=== PATIENT | male | born 1990 | race Caucasian/White ===

== ENCOUNTER 2019-04-27 13:30 | Emergency (ER) | payer OTHER, BC ==
[2019-04-27] MEDS ORDERED: KETOROLAC TROMETHAMINE 30 MG/1 ML VIAL IM ONE (13:53)
--- NOTE | 2019-04-27 13:53 | PDOC ---
History of Present Illness - General Chief Complaint: Back Pain Stated Complaint: BACK PAIN Time Seen by Provider: 04/27/19 13:51 History Source: Patient Exam Limitations: No Limitations - History of Present Illness Initial Comments: 04/27/19 14:20 May be suspect needs emergent vascular she said that she is already transferring 1 does need vascular about it but may be 20-year-old male no past medical history here today complaining of low back pain. Patient states he was lifting carpet was ripping it out subsequently had a sudden onset low back pain in the sacral area. Pain was severe it was worse with twisting motion. He has been ambulating since then happened earlier today no new numbness weakness or tingling. Pain is located the sacral area does not radiate down his legs no bowel or bladder incontinence. States he did have a similar pain like episode 1 year ago when doing some heavy lifting since then has had no issues. No history of prior back surgery no fevers chills no other complaints did not take anything for his pain prior to arrival happened while he was working Past History - Past Medical History Allergies/Adverse Reactions: Allergies Allergy/AdvReac Type Severity Reaction Status Date / Time No Known Allergies Allergy Verified 04/27/19 13:47 Home Medications: Ambulatory Orders Diazepam [Valium] 5 mg PO Q8H PRN #15 tablet MDD 3 04/27/19 Ibuprofen [Motrin -] 600 mg PO TID PRN #30 tablet MDD 3 04/27/19 Review of Systems - Review of Systems Constitutional: No: Chills, Diaphoresis HEENTM: No: Eye Pain Respiratory: No: Cough, Orthopnea, Shortness of Breath Cardiac (ROS): No: Chest Pain, Edema : No: Burning, Dysuria, Discharge Musculoskeletal: Yes: Back Pain Integumentary: No: Bruising, Change in Color All Other Systems: Reviewed and Negative *Physical Exam - Physical Exam 04/27/19 14:22 Paulie Block for awake alert no acute distress lungs are clear bilaterally heart is regular 30 murmurs rubs or gallops. Abdomen is soft nontender extremities are warm and well-perfused. Patient has 5 out of 5 muscle strength in bilateral lower extremities. Sensation is intact throughout. There is no midline tenderness he does have lower sacral paraspinal tenderness negative straight leg raise. Medical Decision Making - Medical Decision Making 12/27/19 13:52 28 yo male with c/o low back pain after lifting carpet. was ripping out carpet. now co pain worse with movement. normal nueroloical exam. plan pain control. Discharge - Discharge Information Problems reviewed: Yes Clinical Impression/Diagnosis: Low back strain Condition: Improved Disposition: HOME - Admission No - Additional Discharge Information Prescriptions: Diazepam [Valium] 5 mg PO Q8H PRN #15 tablet MDD 3 PRN Reason: Pain Ibuprofen [Motrin -] 600 mg PO TID PRN #30 tablet MDD 3 PRN Reason: Pain Prescription Drug Monitoring Program (I-STOP) results: I-STOP reviewed and no issues identified (review reference #[id number]) - Follow up/Referral Referrals: Roger Collins MD [Primary Care Provider] - - Patient Discharge Instructions Patient Printed Discharge Instructions: Back Pain (Alternative Therapy) Additional Instructions: You should take ibuprofen 600 mg every 8 hours as needed for your pain. In addition you can take a muscle relaxer called Valium 5 mg every 8 hours as needed for muscle spasm. Do not drive after taking this medication as it can make you drowsy. Do not combine with alcohol as it may have a sedative effect. Only take as needed understand it this is a controlled substance and can be addictive. For persistent pain, new weakness, numbness or any concerns you should return or follow-up with your primary care doctor for repeat evaluation. You should not lift anything heavy for 1 week. Also speak your primary care doctor about outpatient physical therapy - Post Discharge Activity Work/Back to School Note: Back to Work
[2019-04-27 13:56] VITALS: BP 124/64; PULSE 68; TEMP 98; BMI 31.8
[2019-04-27] MEDS ORDERED: KETOROLAC TROMETHAMINE 30 MG/1 ML VIAL ONE (13:57)
== END 2019-04-27 14:46 | disposition home or self-care (01) ==
LOC: FER 13:30
PROC: 3E0233Z Introduction of Anti-inflammatory into Muscle, Percutaneous Approach (ICD-10-PCS; principal; 2019-04-27)
DX: S39.012A Strain of muscle, fascia and tendon of lower back, initial encounter (principal); X50.0XXA Overexertion from strenuous movement or load, initial encounter; Y93.89 Activity, other specified; Y92.9 Unspecified place or not applicable
CPT/HCPCS: 99282-25